=== PATIENT | female | born 1980 | race Caucasian/White ===

== ENCOUNTER 2016-06-14 12:59 | Emergency (ER) | payer OTHER ==
[~2016-06-14] VITALS: Ht 172.7 cm; Wt 77.3 kg
[~2016-06-14 12:59] MED LIST: ALBU0.63 INHALATION; ALBU8.5H2 IH; ALPR2TAB6 PO; CYCL10TA9 PO; DIAZ5TAB3 PO; HYDR-4003 PO; IBUP800T28 PO; OXYC-466 PO; PRE20 PO; THEO300C4 PO
[2016-06-14] MEDS ORDERED: 0.9% Sodium Chloride 1,000 ML IV ONE ×2 (13:02→14:45)
[2016-06-14] MEDS ORDERED: Albuterol-Ipratropium 3 mL Inhalation Solution NEB ONE (13:05)
[2016-06-14] MEDS ORDERED: Albuterol 2.5 mg/3 mL Inhalation Solution NEB ONE ×3 (13:05→14:05)
[2016-06-14] MEDS ORDERED: MethylprednisoLONE Sodium Succinate 62.5 mg/mL 2 mL Inj IVPUSH ONE (13:05)
[2016-06-14 13:06] VITALS: BP 125/90; PULSE 119; RESP 30; O2SAT 100
[2016-06-14 13:38] LABS: BASOPHILS % (AUTO) 0.8 % (0-3); EOSINOPHILS % (AUTO) 6.1 % (0-5); MONOCYTES % (AUTO) 7.7 % (4-12); Mean Corpuscular Hemoglobin 28.7 pg (27.0-35.0); Mean Corpuscular Volume 87.5 fL (81-100); NEUTROPHILS % (AUTO) 69.1 % (40-74); Platelet Count 522 bil/L (150-400)
--- NOTE | 2016-06-14 13:42 | ED.REPORT ---
HPI-Dyspnea / Wheezing Date of Service Jun 14, 2016 ED Provider: Wm Chu DO Pt is a 35 year old female with a hx of steroid dependent asthma presenting to the ED in respiratory distress. She appears with SOB and speaks in 1 word sentences. Pt has a hx of intubation for asthma exacerbation. Nursing Notes Stated Complaint: SOB Chief Complaint: Respiratory Distress Nursing Notes Reviewed: Yes Allergies: Coded Allergies: tetracycline (Verified Allergy, Mild, Rash, 08/19/15) doxycycline (Verified Allergy, Unknown, 08/19/15) hydromorphone (Verified Allergy, Unknown, 08/19/15) morphine (Verified Adverse Reaction, Mild, Nausea, 08/19/15) Scheduled Albuterol HFA (Proair HFA) 8.5 Gm Hfa.aer.ad 2 PUFFS INHALATION Q4H Prednisone (PredniSONE) 20 Mg Tablet 40 MG PO DAILY Prednisone (PredniSONE) 20 Mg Tablet 40 MG PO DAILY Theophylline Anhydrous ER (Slim-24) 300 Mg Cap.er.24h 900 MG PO QAM Theophylline Anhydrous ER (Slim-24) 300 Mg Cap.er.24h 600 MG PO QPM Scheduled PRN Albuterol HFA (Proair HFA) 8.5 Gm Hfa.aer.ad 2 PUFFS IH Q4 PRN PRN For Shortness of Breath Albuterol Neb Soln (Albuterol Neb Soln) 0.63 Mg/3 Ml Vial.neb 0.63 MG INHALATION Q4H PRN PRN q4-6hr Alprazolam (Alprazolam) 2 Mg Tablet 4 MG PO TID PRN PRN For Anxiety Cyclobenzaprine (Cyclobenzaprine) 10 Mg Tablet 10 MG PO Q8 PRN PRN For Pain Ibuprofen (Ibuprofen) 800 Mg Tablet 800 MG PO TID PRN PRN For Headache General Time Seen by MD: 13:02 Chief Complaint Asthma attack Hx Obtained From: Patient Arrived By: Walk-in Sudden in Onset?: Yes Onset Occurred: Just prior to arrival Context of Onset: Asthma attack Symptom Duration: Since onset Severity: Current: No pain currently Severity: Maximum: No pain Recent Healthcare: No recent doctor visit, No recent hospitalization Similar Sx Previous: Yes Past Medical History Past Medical History Steroid dependent Asthma Hx of methamphetamine overdose Tobacco dependence COPD Emphysema Throat cancer Suicide attempt 04/2014 (drugs) Asthma with history of status asthmaticus previously requiring intubation Diabetes mellitus, by her report. Not on insulin for eight years although she says she is supposed to be on insulin. Reports: Asthma Past Surgical History 2x Partial hysterectomy R ankle repair Laparoscopy Family History Noncontributory Smoking History Current Every Day Smoker, Heavy Tobacco Smoker Social History Currently incarcerated. History of polysubstance abuse, including: meth, vicodin, percocet, Xanax Alcohol Use: "Social" Drug Use: Meth, THC Ambulatory Status Independent Review of Systems Respiratory: Reports: Shortness of breath Complete sys rev & neg: except as marked. GI: Denies: Abdominal pain, Vomiting Neurologic: Denies: Weakness Physical Exam Initial Vital Signs Vital Signs (First) Date Time Temp Pulse Resp B/P Pulse Ox O2 Delivery O2 Flow Rate FiO2 06/14/16 13:06 36.1 119 30 125/90 100 Room Air 06/14/16 14:40 10 Initial VS: Reviewed Head / Eyes: Atraumatic, Normocephalic, PERRL ENT: Mucous membranes moist, Conjunctiva normal, No scleral icterus Abdomen / GI: No distention Extremities: No swelling Skin: Warm, Dry, No cyanosis Neurologic: Alert, Oriented, Nonfocal Psychiatric: Mood/affect normal, Behavior normal, Normal thought content General/Constitutional: Awake, Alert Minimally verbal with 1 word sentences. Diaphoretic. Respiratory / Chest: No chest tenderness Wheezing / Retractions: Positive: Wheeze insp/exp diffuse Tachypnic Cardiovascular: Regular rhythm Heart Rate / Rhythm: Positive: Tachycardia Interpretation & Diagnostics Lab Results Interpretation Result Diagram: 06/14/16 1325 06/14/16 1503 Test 06/14/16 13:25 06/14/16 14:10 06/14/16 15:03 White Blood Count 14.7th/mm3 (3.8-10.1) Red Blood Count 5.06mil/mm3 (3.90-5.20) Hemoglobin 14.5g/dL (12.0-15.6) Hematocrit 44.3% (35.0-46.0) Mean Corpuscular Volume 87.5fL (81-100) Mean Corpuscular Hemoglobin 28.7pg (27.0-35.0) Mean Corpuscular Hemoglobin Concent 32.7% (32.0-37.0) Red Cell Distribution Width 13.7% (12.3-15.4) Platelet Count 522bil/L (150-400) Neutrophils (%) (Auto) 69.1% (40-74) Lymphocytes (%) (Auto) 16.1% (14-46) Monocytes (%) (Auto) 7.7% (4-12) Eosinophils (%) (Auto) 6.1% (0-5) Basophils (%) (Auto) 0.8% (0-3) Hold Richter Top Tube Received (Received) Sodium Level 140mEq/L (134-144) Chloride Level 107mEq/L (97-108) Carbon Dioxide Level 17mmol/L (18-29) Blood Urea Nitrogen 8mg/dL (6-20) Creatinine 0.61mg/dL (0.57-1.00) Estimat Glomerular Filtration Rate 162mL/min (>59) Glucose Level 147mg/dL (60-99) Calcium Level 8.9mg/dL (8.5-10.1) Total Bilirubin 0.2mg/dL (0.0-1.2) Aspartate Amino Transf (AST/SGOT) 16U/L (0-50) Alanine Aminotransferase (ALT/SGPT) 9U/L (0-32) Alkaline Phosphatase 49U/L (25-150) Total Protein 6.4g/dL (6.4-8.4) Albumin 3.4g/dL (3.4-5.0) Potassium Level 3.4mEq/L (3.5-5.2) ECG Interpretation ECG Interpretation: Sinus tachycardia. Rate 115. Time: 13:21 Interpreted by: ED physician Normal ECG Interpretation: Normal sinus rhythm Rhythm / Conduction: Tachycardia X-Ray Chest Interpretation Chest Xray Interpretation: IMPRESSION: No acute cardiopulmonary disease. Dictated by: Flora Doss M.D. on 06/14/2016 at 13:57 View: Portable, 1 view Interpretation / Wet Read by: Interpret - Radiologist Re-Eval/Medical Decision Med Decision/Clinical Course Patient presented in rather severe bronchospasm, she almost completely cleared and normalized after the large volume nebulizer and IV steroids. She has been reevaluated several times during the course of her stay as well as a course of monitoring for at least an hour and a half after her last nebulizer treatment and she is insistent on going home. She is discharged with prednisone and albuterol. Return and follow-up precautions given. Re-Evaluation/Progress #1: Time of Eval: 13:28 Patient Status: Condition improved Re-Evaluation/Progress Note: Pt breathing much improved, but still not back to baseline. Re-Evaluation/Progress #2: Time of Eval: 14:44 Patient Status: Condition improved Re-Evaluation/Progress Note: Pt feels good enough to go home. Discussed plan to watch for an hour off the breathing treatment. Re-Evaluation/Progress #3: Time of Eval: 16:15 Patient Status: Condition improved Re-Evaluation/Progress Note: Pt feels very comfortable going home. She reports that she does not feel like she needs to be hospitalized like last time she came in with similar symptoms. Counseled Regarding: Diagnosis, Lab results, Need for follow-up, When/why to return to ED Discharge & Departure Impression: Primary Impression: Acute asthma exacerbation Asthma severity: unspecified severity Qualified Code: J45.901 - Unspecified asthma with (acute) exacerbation Disposition: Home Discharge Condition All VS Reviewed: Yes Condition: Improved Additional Instructions: Continue regular medicine. I have prescribed prednisone and extra albuterol. Return to ER if worse. Follow-up with primary care doctor for repeat evaluation. Referrals[facility] Attestation Portions of this note were transcribed by Yany Hunt. I, Dr. Chu personally performed the history, physical exam and medical decision-making; I reviewed and confirmed the accuracy of the information in the transcribed note. Signed by: Cale Cee, 06/14/2016 at 1621. copies to: [facility] Wm Chu DO Jun 14, 2016 13:41 YAYN HUNT Jun 14, 2016 13:49
--- NOTE | 2016-06-14 13:59 | DRSVH ---
PROCEDURE: X-RAY CHEST ONE VIEW, PORTABLE ([id number]) INDICATIONS: asthma, wheezing TECHNIQUE: One view of the chest was acquired. COMPARISON: [facility], CR, XR CHEST 1VW (PORTABLE), 02/26/2015, 6:46. [facility], CR, XR CHEST 1VW (PORTABLE), 08/18/2015, 21:18. FINDINGS: Surgical changes and devices: None. Lungs and pleura: No pleural effusions or pneumothorax. Lungs are clear. Mediastinum: Mediastinal contours appear normal. Heart size is normal. Bones and chest wall: No suspicious bony lesions. Overlying soft tissues appear unremarkable. IMPRESSION: No acute cardiopulmonary disease. Dictated by: Flora Doss M.D. on 06/14/2016 at 13:57 Approved by: Flora Doss M.D. on 06/14/2016 at 13:57
[2016-06-14] MEDS ORDERED: Albuterol 0.5% (5mg/mL) 20 mL Inhalation Solution ONE (14:00)
[2016-06-14 14:15] VITALS: BP 134/63; PULSE 127; RESP 25; O2SAT 100
[2016-06-14 14:40] VITALS: BP 134/65; PULSE 130; RESP 24; O2SAT 98
[2016-06-14] MEDS ORDERED: ALBU8.5H2 INHALATION (16:17)
[2016-06-14] MEDS ORDERED: PRE20 PO (16:17)
[2016-06-14 16:26] VITALS: BP 111/52; PULSE 130; RESP 15; O2SAT 97
== END 2016-06-14 16:26 | disposition home or self-care (01) ==
LOC: SED 12:59
DX: J45.901 Unspecified asthma with (acute) exacerbation (principal); E11.9 Type 2 diabetes mellitus without complications; F17.200 Nicotine dependence, unspecified, uncomplicated; Z88.1 Allergy status to other antibiotic agents; Z88.5 Allergy status to narcotic agent
CPT/HCPCS: 36415; 71010; 80053; 84132; 85025; 93005; 94644; 94645; 96361; 96374; 99285; J2930; J7030; J7613; J7620